=== PATIENT | male | born 1985 | race African-American/Black ===

== ENCOUNTER 2021-12-20 19:24 | Emergency (ER) | payer BC ==
[2021-12-20] MEDS: cefTRIAXone 500 MG Vial IM STA (19:44)
[2021-12-20] MEDS: Take Home: Doxycycline 100 MG Tab, 4 Tab Pack PO ONE (19:49)
[2021-12-24 13:46] LABS: C.TRACHOMATIS BY TMA Negative (Negative); N.GONORRHOEAE BY TMA Positive (Negative)
== END 2021-12-20 20:09 | disposition home or self-care (01) ==
LOC: CC.ED 19:24
DX: Z20.2 Contact with and (suspected) exposure to infections with a predominantly sexual mode of transmission (principal); Z79.899 Other long term (current) drug therapy
CPT/HCPCS: 81001; 87086; 87491; 87591; 96372; 99283; A9270-GY; J0696